=== PATIENT | female | born 1965 | race Caucasian/White ===

== ENCOUNTER 2019-09-07 15:52 | Inpatient (IN) ==
[2019-09-07 16:50] LABS: Bilirubin,Urine Negative (Negative); Blood,Urine Negative (Negative); Clarity,Urine Clear (Clear); Color,Urine Yellow (Yellow); Glucose,Urine (UA) Normal (Normal); Ketones,Urine Negative (Negative); Leukocyte Esterase,Urine Negative (Negative); Nitrite,Urine Negative (Negative); Protein,Urine Negative (Neg-Trace); Specific Gravity,Urine < 1.005 (1.010-1.025); Urobilinogen,Urine Normal (Normal)
[2019-09-07] MEDS ORDERED: *HR* OxyCODONE/APAP 5/325 TABLET PO ONE (16:52)
[2019-09-07] MEDS ORDERED: Ondansetron ODT 4 MG TAB.RAPDIS SL ONE (16:52)
[2019-09-07 17:01] LABS: Basophils % 0.2 %; Eosinophils % 0.6 %; Hematocrit 20.1 % (35.3-44.9); Hemoglobin 6.5 g/dL (11.5-15.4); Immature Granulocytes % 0.6 % (0-4); Lymphocytes # 0.9 K/mcL (0.6-4.6); Lymphocytes % 14.4 %; Mean Corpuscular HGB Conc 32.3 g/dL (31.6-35.5); Mean Corpuscular Hemoglobin 30.7 pg (28.0-33.3); Mean Corpuscular Volume 94.8 fL (83.0-100.0); Mean Platelet Volume 10.5 fL (9.4-12.4); Monocytes # 0.6 K/mcL (0.0-1.3); Monocytes % 9.7 %; Neutrophils # 4.6 K/mcL (1.6-8.9); Platelet Count 119 K/mcL (140-400); Red Blood Count 2.12 M/mcL (3.82-4.97); Red Cell Distribution Width 16.2 % (11.5-14.5); Segmented Neutrophils % 74.5 %; White Blood Count 6.2 K/mcL (4.3-11.1)
[2019-09-07 17:20] LABS: Alanine Aminotransferase 23 Units/L (7-52); Albumin 2.9 g/dL (3.5-5.7); Albumin/Globulin Ratio 0.8 (1.1-2.2); Alkaline Phosphatase 235 Units/L (34-104); Aspartate Amino Transferase 87 Units/L (13-39); BUN/Creatinine Ratio 5 (6-26); Bilirubin,Direct 0.5 mg/dL (0.0-0.2); Bilirubin,Indirect 0.6 mg/dL (0.0-1.2); Bilirubin,Total 1.1 mg/dL (0.3-1.0); Blood Urea Nitrogen 2 mg/dL (6-20); Calcium 7.9 mg/dL (8.6-10.3); Carbon Dioxide 22 mEq/L (23-29); Chloride 98 mEq/L (98-107); Globulin 3.5 g/dL (2.4-3.5); Glucose 150 mg/dL (70-105); Lipase 80 Units/L (11-82); Osmolality,Calculated 269 (280-300); Potassium 2.9 mEq/L (3.5-5.1); Sodium 130 mEq/L (136-145); Total Protein 6.4 g/dL (6.4-8.9); eGFR For African Americans > 60 (> 60); eGFR For Non-African Americans > 60 (> 60)
[2019-09-07] MEDS ORDERED: cefTRIAXone 1,000 MG in Water for inj. (sterile) 10 ML IVP ONE (17:29)
[2019-09-07 18:01] LABS: INR 1.5; Prothrombin Time 17.2 Seconds (9.4-12.1)
[2019-09-07 18:03] LABS: Activated Partial Thrombo Time 36.5 Seconds (26.0-36.0)
[2019-09-07] MEDS ORDERED: Pantoprazole 40 MG VIAL IVP ONE (18:07)
[2019-09-07] MEDS ORDERED: 0.9 % Sodium Chloride 250 ML ONE (19:13)
[2019-09-07 19:46] LABS: Magnesium 1.1 mg/dL (1.6-2.6)
[2019-09-07] MEDS ORDERED: Dextrose Gel 15 GM/37.5 ML TUBE PO PRN ×2 (22:02)
[2019-09-07] MEDS ORDERED: Albuterol 2.5 MG/3 ML NEBULIZER IH PRN (22:02)
[2019-09-07] MEDS ORDERED: *HR* Dextrose 50 % in Water (Syg) 50 ML SYRINGE IVP PRN (22:02)
[2019-09-07] MEDS ORDERED: Naloxone 0.4 MG/ML INJ IVP PRN (22:02)
[2019-09-07] MEDS ORDERED: D5% in Water 1,000 ML IVC PRN (22:02)
[2019-09-07] MEDS ORDERED: 0.9 % Sodium Chloride 250 ML IVC SCH (22:15)
[2019-09-07 23:04] LABS: Hematocrit 22.7 % (35.3-44.9); Hemoglobin 7.5 g/dL (11.5-15.4)
[2019-09-07 23:06] LABS: Estimated Average Glucose 111 mg/dl
[2019-09-07] MEDS: Nicotine 14 MG PATCH.TD24 TD SCH (23:06)
[2019-09-07] MEDS: Octreotide 400 MCG in 0.9 % Sodium Chloride 100 ML IVC SCH (23:16)
[2019-09-08] MEDS: Insulin LISPRO 300 UNITS/3 ML VIAL SQ SCH ×5 (00:06→23:51)
[2019-09-08 05:56] LABS: Basophils % 0.2 %; Eosinophils # 0.1 K/mcL (0.0-0.6); Hematocrit 22.7 % (35.3-44.9); Hemoglobin 7.4 g/dL (11.5-15.4); Immature Granulocytes % 0.3 % (0-4); Lymphocytes # 1.3 K/mcL (0.6-4.6); Lymphocytes % 22.3 %; Mean Corpuscular HGB Conc 32.6 g/dL (31.6-35.5); Mean Corpuscular Hemoglobin 30.8 pg (28.0-33.3); Mean Corpuscular Volume 94.6 fL (83.0-100.0); Mean Platelet Volume 10.5 fL (9.4-12.4); Monocytes # 0.5 K/mcL (0.0-1.3); Monocytes % 8.6 %; Neutrophils # 3.9 K/mcL (1.6-8.9); Platelet Count 111 K/mcL (140-400); Red Cell Distribution Width 16.1 % (11.5-14.5); Segmented Neutrophils % 66.6 %; White Blood Count 5.9 K/mcL (4.3-11.1)
[2019-09-08] MEDS: Pantoprazole 40 MG VIAL IVP SCH ×2 (06:06→17:02)
[2019-09-08 06:08] LABS: INR 1.5; Prothrombin Time 16.8 Seconds (9.4-12.1)
[2019-09-08 06:25] LABS: Alanine Aminotransferase 23 Units/L (7-52); Albumin 2.8 g/dL (3.5-5.7); Albumin/Globulin Ratio 0.8 (1.1-2.2); Alkaline Phosphatase 225 Units/L (34-104); Aspartate Amino Transferase 90 Units/L (13-39); BUN/Creatinine Ratio 5 (6-26); Bilirubin,Total 1.9 mg/dL (0.3-1.0); Blood Urea Nitrogen 2 mg/dL (6-20); Calcium 7.9 mg/dL (8.6-10.3); Carbon Dioxide 23 mEq/L (23-29); Chloride 100 mEq/L (98-107); Chol/HDL Ratio 10.4 (0-4.9); Cholesterol 146 mg/dL (< 200); Globulin 3.3 g/dL (2.4-3.5); Glucose 114 mg/dL (70-105); HDL Cholesterol 14 mg/dL (40-59); LDL Cholesterol,Calculated 114 mg/dL (0-99); Magnesium 1.9 mg/dL (1.6-2.6); Osmolality,Calculated 267 (280-300); Phosphorous 2.8 mg/dL (2.7-4.5); Potassium 3.7 mEq/L (3.5-5.1); Sodium 130 mEq/L (136-145); Total Protein 6.1 g/dL (6.4-8.9); Triglycerides 88 mg/dL (< 150); eGFR For African Americans > 60 (> 60); eGFR For Non-African Americans > 60 (> 60)
[2019-09-08] MEDS ORDERED: cefTRIAXone 1,000 MG in Water for inj. (sterile) 10 ML IVP SCH (09:00)
[2019-09-08] MEDS: cefTRIAXone 1,000 MG in 0.9 % Sodium Chloride Mini Bag 100 ML IVPB SCH (09:56)
[2019-09-08 10:44] LABS: Hematocrit 22.7 % (35.3-44.9); Hemoglobin 7.3 g/dL (11.5-15.4)
[2019-09-08] MEDS ORDERED: *HR* Propofol 200 MG/20 ML VIAL IVP ONE ×2 (12:09→12:25)
[2019-09-08] MEDS ORDERED: Lidocaine -MPF 2% 2 ML VIAL ONE (12:09)
[2019-09-08 14:36] LABS: Amylase,Peritoneal Fluid 19 Units/L (No Ref Range); Glucose,Peritoneal Fluid 119 mg/dL (No Ref Range); LDH,Peritoneal Fluid 42 Units/L (No Ref Range); Total Protein,Peritoneal Fluid < 3.0 g/dL
[2019-09-08 15:04] LABS: RBC,Peritoneal Fluid < 0.002 M/mcL
[2019-09-08] MEDS: Octreotide 400 MCG in 0.9 % Sodium Chloride 100 ML IVC SCH (15:06)
[2019-09-08] MEDS: *HR* Phytonadione 10 MG/ML AMPUL SQ SCH (15:06)
[2019-09-08] MEDS ORDERED: GI Cocktail 40 ML EACH PO ONE (15:17)
[2019-09-08 15:35] LABS: Appearance of Peritoneal Fl CLEAR (Clear); Basophils,Peritoneal Fluid 0 %; Eosinophils,Peritoneal Fluid 0 %
[2019-09-08] MEDS: Folic Acid 1 MG TABLET PO SCH (17:02)
[2019-09-08] MEDS: Thiamine (B-1) 100 MG TABLET PO SCH (17:02)
[2019-09-08] MEDS: Nicotine 14 MG PATCH.TD24 TD SCH (22:12)
[2019-09-09] MEDS: Pantoprazole 40 MG VIAL IVP SCH (05:01)
[2019-09-09] MEDS: Insulin LISPRO 300 UNITS/3 ML VIAL SQ SCH ×2 (06:16→11:27)
[2019-09-09 06:18] LABS: Basophils % 0.2 %; Eosinophils % 0.6 %; Hemoglobin 7.1 g/dL (11.5-15.4); Immature Granulocytes % 0.2 % (0-4); Lymphocytes # 0.9 K/mcL (0.6-4.6); Lymphocytes % 18.5 %; Mean Corpuscular HGB Conc 32.3 g/dL (31.6-35.5); Mean Corpuscular Hemoglobin 30.6 pg (28.0-33.3); Mean Corpuscular Volume 94.8 fL (83.0-100.0); Mean Platelet Volume 10.9 fL (9.4-12.4); Monocytes # 0.5 K/mcL (0.0-1.3); Monocytes % 9.6 %; Neutrophils # 3.3 K/mcL (1.6-8.9); Platelet Count 104 K/mcL (140-400); Red Blood Count 2.32 M/mcL (3.82-4.97); Red Cell Distribution Width 16.2 % (11.5-14.5); Segmented Neutrophils % 70.9 %; White Blood Count 4.7 K/mcL (4.3-11.1)
[2019-09-09] MEDS: Octreotide 400 MCG in 0.9 % Sodium Chloride 100 ML IVC SCH (07:01)
[2019-09-09 07:40] LABS: % Iron Saturation 5 % (15-50); BUN/Creatinine Ratio 8 (6-26); Blood Urea Nitrogen 4 mg/dL (6-20); Calcium 7.8 mg/dL (8.6-10.3); Carbon Dioxide 22 mEq/L (23-29); Chloride 101 mEq/L (98-107); Glucose 151 mg/dL (70-105); Iron 16 mcg/dL (50-170); Osmolality,Calculated 272 (280-300); Potassium 4.1 mEq/L (3.5-5.1); Sodium 131 mEq/L (136-145); Transferrin 211 mg/dL (203-362); eGFR For African Americans > 60 (> 60); eGFR For Non-African Americans > 60 (> 60)
[2019-09-09 07:46] LABS: Ferritin 31 ng/mL (10-120)
[2019-09-09 07:52] LABS: Folate 12.9 ng/mL (3.0-16.0)
[2019-09-09] MEDS: Thiamine (B-1) 100 MG TABLET PO SCH (08:02)
[2019-09-09] MEDS: *HR* Phytonadione 10 MG/ML AMPUL SQ SCH (08:02)
[2019-09-09] MEDS: Folic Acid 1 MG TABLET PO SCH (08:02)
[2019-09-09] MEDS: cefTRIAXone 1,000 MG in 0.9 % Sodium Chloride Mini Bag 100 ML IVPB SCH (08:04)
[2019-09-09] MEDS ORDERED: Furosemide 20 MG TABLET PO SCH (09:00)
[2019-09-09] MEDS ORDERED: Ferumoxytol 510 MG in 0.9 % Sodium Chloride 100 ML IVPB ONE ×3 (10:32→11:13)
[2019-09-09 13:29] VITALS: BP 105/67
[2019-09-10 16:06] LABS: Fluid Source for Albumin PERITONEAL FL
== END 2019-09-09 14:28 | disposition home or self-care (01) | DRG 432 ==
LOC: 2ANU 15:52 → EMEROOARM 15:52 → SUATTDRO 20:25 → 2ANU 20:59
PROVIDERS: ADMIT Family Medicine; ATTEND Internal Medicine

== ENCOUNTER 2020-07-25 04:56 | Inpatient (IN) ==
[2020-07-25] MEDS ORDERED: Naloxone 0.4 MG/ML INJ IVP PRN ×2 (06:42→06:46)
[2020-07-25] MEDS ORDERED: 0.9 % Sodium Chloride 1,000 ML ONE (06:56)
[2020-07-25] MEDS: 0.9 % Sodium Chloride 1,000 ML IVC SCH ×2 (06:59→14:35)
[2020-07-25] MEDS: Pantoprazole 40 MG in 0.9 % Sodium Chloride Mini Bag 100 ML IVC SCH ×2 (07:00→14:22)
[2020-07-25] MEDS: Octreotide 400 MCG in 0.9 % Sodium Chloride 100 ML IVC SCH ×2 (07:41→14:59)
[2020-07-25] MEDS ORDERED: Ondansetron 4 MG/2 ML VIAL IVP PRN (07:45)
[2020-07-25] MEDS ORDERED: Ondansetron 4 MG/2 ML VIAL ONE (07:48)
[2020-07-25 08:00] LABS: Mean Corpuscular HGB Conc 34.9 g/dL (31.6-35.5); Mean Corpuscular Hemoglobin 33.5 pg (28.0-33.3); Mean Corpuscular Volume 95.9 fL (83.0-100.0); White Blood Count 6.8 K/mcL (4.3-11.1)
[2020-07-25 08:02] LABS: Eosinophils % 0.1 %; Hematocrit 18.6 % (35.3-44.9); Hemoglobin 6.5 g/dL (11.5-15.4); Immature Granulocytes % 0.6 % (0-4); Lymphocytes # 1.3 K/mcL (0.6-4.6); Lymphocytes % 18.4 %; Monocytes # 0.6 K/mcL (0.0-1.3); Monocytes % 8.3 %; Red Blood Count 1.94 M/mcL (3.82-4.97); Red Cell Distribution Width 15.1 % (11.5-14.5); Segmented Neutrophils % 72.6 %
[2020-07-25 08:04] LABS: Prothrombin Time 22.3 Seconds (9.4-12.1)
[2020-07-25 08:04] LABS: VBG Ionized Calcium 0.76 mmol/L (1.15-1.35)
[2020-07-25 08:06] LABS: Activated Partial Thrombo Time 35.4 Seconds (26.0-36.0); Neutrophils # 4.9 K/mcL (1.6-8.9); Platelet Count 53 K/mcL (140-400)
[2020-07-25 08:20] LABS: Alanine Aminotransferase 25 Units/L (7-52); Albumin 1.7 g/dL (3.5-5.7); Albumin/Globulin Ratio 0.7 (1.1-2.2); Alkaline Phosphatase 123 Units/L (34-104); Amylase 50 Units/L (29-103); Aspartate Amino Transferase 79 Units/L (13-39); BUN/Creatinine Ratio 10 (6-26); Bilirubin,Direct 1.1 mg/dL (0.0-0.2); Bilirubin,Indirect 1.5 mg/dL (0.0-1.0); Bilirubin,Total 2.6 mg/dL (0.3-1.0); Blood Urea Nitrogen 4 mg/dL (6-20); Calcium 6.2 mg/dL (8.6-10.3); Carbon Dioxide 26 mEq/L (23-29); Chloride 95 mEq/L (98-107); Globulin 2.3 g/dL (2.4-3.5); Glucose 138 mg/dL (70-105); Lipase 156 Units/L (11-82); Magnesium 0.8 mg/dL (1.6-2.6); Osmolality,Calculated 265 (280-300); Phosphorous 2.8 mg/dL (2.7-4.5); Potassium 3.2 mEq/L (3.5-5.1); Sodium 128 mEq/L (136-145); eGFR For African Americans > 60 (> 60); eGFR For Non-African Americans > 60 (> 60)
[2020-07-25] MEDS ORDERED: Calcium Chloride 2,000 MG in 0.9 % Sodium Chloride 100 ML IVPB ONE (08:42)
[2020-07-25] MEDS: FentaNYL (PF) 1,000 MCG/100 ML IV.SOLN IVC SCH ×2 (08:45→15:01)
[2020-07-25] MEDS ORDERED: Norepinephrine 4 MG/254 ML IV.SOLN IVC SCH (08:45)
[2020-07-25] MEDS ORDERED: Vasopressin 40 UNIT in D5% in Water 100 ML IVC SCH (08:45)
[2020-07-25] MEDS: Midazolam HCl 50 MG/100 ML IV.SOLN IVC SCH ×2 (08:45→15:00)
[2020-07-25] MEDS ORDERED: *HR* Norepinephrine 4 MG/4 ML VIAL IVC ONE (08:54)
[2020-07-25] MEDS ORDERED: 0.9 % Sodium Chloride 250 ML ONE (08:55)
[2020-07-25] MEDS ORDERED: Sodium Tetradecyl Sulfate 2 ML VIAL IVP ONE (10:30)
[2020-07-25 11:09] LABS: Hemoglobin 7.3 g/dL (11.5-15.4)
[2020-07-25] MEDS ORDERED: Isovue-370 500 ML BOTTLE IVP ONE (11:09)
[2020-07-25 11:10] LABS: Hematocrit 21.2 % (35.3-44.9)
[2020-07-25 11:18] LABS: VBG Ionized Calcium 0.97 mmol/L (1.15-1.35)
[2020-07-25 11:35] LABS: BUN/Creatinine Ratio 11 (6-26); Blood Urea Nitrogen 5 mg/dL (6-20); Calcium 7.9 mg/dL (8.6-10.3); Carbon Dioxide 25 mEq/L (23-29); Chloride 98 mEq/L (98-107); Glucose 193 mg/dL (70-105); Magnesium 0.8 mg/dL (1.6-2.6); Osmolality,Calculated 275 (280-300); Phosphorous 4.9 mg/dL (2.7-4.5); Potassium 3.6 mEq/L (3.5-5.1); Sodium 131 mEq/L (136-145); Troponin I < 0.03 ng/mL (< 0.04); eGFR For African Americans > 60 (> 60); eGFR For Non-African Americans > 60 (> 60)
[2020-07-25 11:35] LABS: ABG Base Excess 4 mEq/L (-2 to 3); ABG HCO3 28 mEq/L (21-27); ABG Oxygen Saturation 100 % (95-98); ABG PCO2 40 mmHg (35-45); ABG PH 7.46 pH Units (7.32-7.45); ABG PO2 562 mmHg (85-104); ABG TCO2 29 mEq/L (20-26); Blood Gas Modality AF; Blood Gas VT 500 cc
[2020-07-25] MEDS ORDERED: Heparin 1,000 UNITS/500 mL 500 ML ONE (12:04)
[2020-07-25] MEDS ORDERED: Lidocaine/EPI 1:100k 1% 50 ML VIAL ONE (12:04)
[2020-07-25] MEDS ORDERED: 0.9 % Sodium Chloride 500 ML ONE (12:04)
[2020-07-25] MEDS ORDERED: Thiamine (B-1) 100 MG, Folic Acid 1 MG, MVI, adult with vitamin K 10 ML in 0.9 % Sodi... IVPB SCH (13:29)
[2020-07-25 15:11] VITALS: BP 109/68
[2020-07-25] MEDS ORDERED: cefTRIAXone 2,000 MG in Water for inj. (sterile) 20 ML IVP SCH (21:00)
== END 2020-07-25 15:23 | disposition short-term general hospital (02) | DRG 432 ==
LOC: ICNU → OBSVTOIN 06:22
PROVIDERS: ADMIT Internal Medicine; ATTEND Internal Medicine

== ENCOUNTER 2020-09-17 21:20 | Inpatient (IN) ==
[2020-09-17] MEDS ORDERED: Naloxone 0.4 MG/ML INJ IVP PRN (23:43)
[2020-09-18 00:24] LABS: BUN/Creatinine Ratio 11 (6-26); Blood Urea Nitrogen 8 mg/dL (6-20); Calcium 7.9 mg/dL (8.6-10.3); Carbon Dioxide 31 mEq/L (23-29); Chloride 87 mEq/L (98-107); Glucose 98 mg/dL (70-105); Osmolality,Calculated 260 (280-300); Sodium 126 mEq/L (136-145); eGFR For African Americans > 60 (> 60); eGFR For Non-African Americans > 60 (> 60)
[2020-09-18 00:50] LABS: Basophils % 0.3 %; Eosinophils # 0.1 K/mcL (0.0-0.6); Eosinophils % 0.6 %; Hematocrit 27.5 % (35.3-44.9); Hemoglobin 9.2 g/dL (11.5-15.4); Immature Granulocytes % 0.6 % (0-4); Immature Platelets 5.9 % (1.1-6.1); Lymphocytes # 1.4 K/mcL (0.6-4.6); Lymphocytes % 16.2 %; Mean Corpuscular HGB Conc 33.5 g/dL (31.6-35.5); Mean Corpuscular Hemoglobin 30.3 pg (28.0-33.3); Mean Corpuscular Volume 90.5 fL (83.0-100.0); Mean Platelet Volume 10.6 fL (9.4-12.4); Monocytes # 0.8 K/mcL (0.0-1.3); Monocytes % 8.5 %; Neutrophils # 6.5 K/mcL (1.6-8.9); Platelet Count 104 K/mcL (140-400); Red Blood Count 3.04 M/mcL (3.82-4.97); Red Cell Distribution Width 16.5 % (11.5-14.5); Segmented Neutrophils % 73.8 %; White Blood Count 8.9 K/mcL (4.3-11.1)
[2020-09-18 00:55] LABS: INR 2.2; Prothrombin Time 25.3 Seconds (9.4-12.1)
[2020-09-18] MEDS ORDERED: 0.9 % Sodium Chloride 1,000 ML IVC SCH (01:00)
[2020-09-18 01:08] LABS: Alanine Aminotransferase 12 Units/L (7-52); Albumin/Globulin Ratio 0.4 (1.1-2.2); Alkaline Phosphatase 144 Units/L (34-104); Aspartate Amino Transferase 48 Units/L (13-39); BUN/Creatinine Ratio 10 (6-26); Bilirubin,Total 4.5 mg/dL (0.3-1.0); Blood Urea Nitrogen 8 mg/dL (6-20); Calcium 8.1 mg/dL (8.6-10.3); Carbon Dioxide 32 mEq/L (23-29); Chloride 86 mEq/L (98-107); Globulin 5.2 g/dL (2.4-3.5); Glucose 97 mg/dL (70-105); Osmolality,Calculated 262 (280-300); Sodium 127 mEq/L (136-145); Total Protein 7.2 g/dL (6.4-8.9); eGFR For African Americans > 60 (> 60); eGFR For Non-African Americans > 60 (> 60)
[2020-09-18 01:09] LABS: Troponin I < 0.03 ng/mL (< 0.04)
[2020-09-18] MEDS ORDERED: Lactulose 200 GM, Sodium Chloride IRRigation 700 ML RC ONE (01:24)
[2020-09-18] MEDS ORDERED: 0.9 % Sodium Chloride 250 ML ONE ×2 (03:33→15:28)
[2020-09-18] MEDS ORDERED: Potassium Chloride 40 MEQ, Lidocaine 1% 2 ML in 0.9 % Sodium Chloride 500 ML IVPB ONE (06:45)
[2020-09-18 07:05] LABS: BUN/Creatinine Ratio 11 (6-26); Blood Urea Nitrogen 8 mg/dL (6-20); Calcium 7.9 mg/dL (8.6-10.3); Carbon Dioxide 32 mEq/L (23-29); Chloride 88 mEq/L (98-107); Glucose 87 mg/dL (70-105); Osmolality,Calculated 264 (280-300); Potassium 2.9 mEq/L (3.5-5.1); Sodium 128 mEq/L (136-145); eGFR For African Americans > 60 (> 60); eGFR For Non-African Americans > 60 (> 60)
[2020-09-18] MEDS: Furosemide 40 MG TABLET PO SCH ×2 (08:57→18:40)
[2020-09-18] MEDS: Albumin 25% 25gram/100mL 25 GM/100 ML IV.SOLN IVC SCH ×2 (13:09→15:11)
[2020-09-18] MEDS: Lactulose Oral Soln 20 GM/30 ML UDC PO SCH ×2 (13:10→20:36)
[2020-09-18] MEDS ORDERED: 0.9 % Sodium Chloride 250 ML IVC ONE ×2 (15:25→18:48)
[2020-09-18] MEDS ORDERED: 0.9 % Sodium Chloride 500 ML IVC ONE (18:40)
[2020-09-18] MEDS ORDERED: 0.9 % Sodium Chloride 500 ML ONE (18:44)
[2020-09-18] MEDS ORDERED: Albumin 25% 25gram/100mL 25 GM/100 ML IV.SOLN IVPB ONE (21:03)
[2020-09-19] MEDS ORDERED: Albumin 25% 25gram/100mL 25 GM/100 ML IV.SOLN IVPB ONE (03:35)
[2020-09-19 04:09] LABS: Hemoglobin 8.7 g/dL (11.5-15.4); Lymphocytes % 25.2 %; Mean Corpuscular Volume 91.3 fL (83.0-100.0)
[2020-09-19 04:11] LABS: Basophils % 0.5 %; Eosinophils # 0.1 K/mcL (0.0-0.6); Eosinophils % 1.7 %; Hematocrit 26.4 % (35.3-44.9); Immature Granulocytes % 0.5 % (0-4); Immature Platelets 5.8 % (1.1-6.1); Lymphocytes # 1.5 K/mcL (0.6-4.6); Mean Corpuscular Hemoglobin 30.1 pg (28.0-33.3); Mean Platelet Volume 10.6 fL (9.4-12.4); Monocytes # 0.9 K/mcL (0.0-1.3); Monocytes % 14.8 %; Neutrophils # 3.4 K/mcL (1.6-8.9); Nucleated Red Blood Cells 0.3 /100 WBC (0); Red Blood Count 2.89 M/mcL (3.82-4.97); Red Cell Distribution Width 16.3 % (11.5-14.5); Segmented Neutrophils % 57.3 %
[2020-09-19 04:12] LABS: Platelet Count 78 K/mcL (140-400)
[2020-09-19 04:35] LABS: BUN/Creatinine Ratio 13 (6-26); Blood Urea Nitrogen 8 mg/dL (6-20); Calcium 8.2 mg/dL (8.6-10.3); Carbon Dioxide 30 mEq/L (23-29); Chloride 94 mEq/L (98-107); Glucose 87 mg/dL (70-105); Osmolality,Calculated 268 (280-300); Potassium 2.9 mEq/L (3.5-5.1); Sodium 130 mEq/L (136-145); eGFR For African Americans > 60 (> 60); eGFR For Non-African Americans > 60 (> 60)
[2020-09-19 08:01] LABS: Magnesium 1.5 mg/dL (1.6-2.6); Phosphorous 1.7 mg/dL (2.7-4.5)
[2020-09-19] MEDS: Furosemide 40 MG TABLET PO SCH ×2 (08:11→16:44)
[2020-09-19] MEDS: Folic Acid 1 MG TABLET PO SCH (08:20)
[2020-09-19] MEDS: Thiamine (B-1) 100 MG TABLET PO SCH (08:20)
[2020-09-19] MEDS: PARoxetine 20 MG TABLET PO SCH (08:21)
[2020-09-19] MEDS: Lactulose Oral Soln 20 GM/30 ML UDC PO SCH ×2 (08:21→22:46)
[2020-09-19] MEDS: Fluticasone Propionate Nasal 50 MCG/SPRAY BOTTLE NS SCH (08:23)
[2020-09-19 10:50] LABS: RBC,Peritoneal Fluid < 2000 RBC/mcL
[2020-09-19 10:52] LABS: Appearance of Peritoneal Fl HAZY (Clear)
[2020-09-19] MEDS ORDERED: Potassium Phosphate 44 MEQ in 0.9 % Sodium Chloride 250 ML IVPB ONE (11:10)
[2020-09-19 12:28] LABS: Basophils,Peritoneal Fluid 0 %; Eosinophils,Peritoneal Fluid 0 %
[2020-09-19] MEDS: *HR* Phytonadione 5 MG TABLET PO SCH (13:23)
[2020-09-19] MEDS: Albumin 25% 25gram/100mL 25 GM/100 ML IV.SOLN IVPB SCH ×3 (13:24→23:17)
[2020-09-19] MEDS: cefTRIAXone 1,000 MG in Water for inj. (sterile) 10 ML IVP SCH (13:43)
[2020-09-20 06:28] LABS: Basophils % 0.4 %; Immature Granulocytes % 0.2 % (0-4); Mean Platelet Volume 10.7 fL (9.4-12.4); Red Cell Distribution Width 16.3 % (11.5-14.5)
[2020-09-20 06:30] LABS: Eosinophils # 0.1 K/mcL (0.0-0.6); Eosinophils % 1.7 %; Hematocrit 23.2 % (35.3-44.9); Hemoglobin 7.8 g/dL (11.5-15.4); Immature Platelets 6.1 % (1.1-6.1); Lymphocytes # 1.5 K/mcL (0.6-4.6); Lymphocytes % 27.3 %; Mean Corpuscular HGB Conc 33.6 g/dL (31.6-35.5); Mean Corpuscular Volume 92.1 fL (83.0-100.0); Monocytes # 0.8 K/mcL (0.0-1.3); Monocytes % 15.3 %; Neutrophils # 2.9 K/mcL (1.6-8.9); Red Blood Count 2.52 M/mcL (3.82-4.97); Segmented Neutrophils % 55.1 %; White Blood Count 5.3 K/mcL (4.3-11.1)
[2020-09-20 06:33] LABS: Platelet Count 67 K/mcL (140-400)
[2020-09-20 07:03] LABS: Hypochromasia Present (Not Present); Platelet Estimate Decreased (Normal); Reactive Lymphocytes Present (Not Present)
[2020-09-20 07:09] LABS: BUN/Creatinine Ratio 15 (6-26); Blood Urea Nitrogen 8 mg/dL (6-20); Calcium 8.2 mg/dL (8.6-10.3); Carbon Dioxide 28 mEq/L (23-29); Chloride 97 mEq/L (98-107); Glucose 79 mg/dL (70-105); Magnesium 1.6 mg/dL (1.6-2.6); Osmolality,Calculated 273 (280-300); Phosphorous 2.1 mg/dL (2.7-4.5); Potassium 3.4 mEq/L (3.5-5.1); Sodium 133 mEq/L (136-145); eGFR For African Americans > 60 (> 60); eGFR For Non-African Americans > 60 (> 60)
[2020-09-20] MEDS: Folic Acid 1 MG TABLET PO SCH (08:49)
[2020-09-20] MEDS: *HR* Phytonadione 5 MG TABLET PO SCH (08:49)
[2020-09-20] MEDS: cefTRIAXone 1,000 MG in Water for inj. (sterile) 10 ML IVP SCH (08:49)
[2020-09-20] MEDS: Thiamine (B-1) 100 MG TABLET PO SCH (08:49)
[2020-09-20] MEDS: Albumin 25% 25gram/100mL 25 GM/100 ML IV.SOLN IVPB SCH ×4 (08:51→18:44)
[2020-09-20] MEDS: Fluticasone Propionate Nasal 50 MCG/SPRAY BOTTLE NS SCH (08:52)
[2020-09-20] MEDS: Lactulose Oral Soln 20 GM/30 ML UDC PO SCH ×4 (08:52→20:51)
[2020-09-20] MEDS: PARoxetine 20 MG TABLET PO SCH (08:53)
[2020-09-20 10:44] LABS: INR 2.4; Prothrombin Time 27.1 Seconds (9.4-12.1)
[2020-09-20] MEDS: Furosemide 40 MG TABLET PO SCH (11:13)
[2020-09-20 12:24] LABS: Hematocrit 24.4 % (35.3-44.9); Hemoglobin 7.9 g/dL (11.5-15.4)
[2020-09-20 12:44] LABS: Albumin 3.3 g/dL (3.5-5.7); Albumin/Globulin Ratio 1.2 (1.1-2.2); Bilirubin,Direct 1.4 mg/dL (0.0-0.2); Bilirubin,Indirect 1.3 mg/dL (0.0-1.0); Bilirubin,Total 2.7 mg/dL (0.3-1.0); Globulin 2.8 g/dL (2.4-3.5); Total Protein 6.1 g/dL (6.4-8.9)
[2020-09-20] MEDS ORDERED: cefTRIAXone 1,000 MG in 0.9 % Sodium Chloride Mini Bag 100 ML IVPB ONE (14:43)
[2020-09-20] MEDS ORDERED: *HR* Dextrose 50 % in Water (Vial) 50 ML VIAL IVP PRN (15:26)
[2020-09-20] MEDS ORDERED: Dextrose Gel 15 GM/37.5 ML TUBE PO PRN ×2 (15:26)
[2020-09-20] MEDS ORDERED: D5% in Water 1,000 ML IVC PRN (15:26)
[2020-09-20] MEDS: MethylPREDNISolone 40 MG/ML VIAL IVP SCH (16:16)
[2020-09-21 04:28] LABS: INR 2.7; Mean Corpuscular Volume 93.2 fL (83.0-100.0)
[2020-09-21 04:30] LABS: Activated Partial Thrombo Time 50.1 Seconds (26.0-36.0); Hematocrit 24.5 % (35.3-44.9); Hemoglobin 7.9 g/dL (11.5-15.4); Immature Granulocytes % 0.8 % (0-4); Immature Platelets 5.1 % (1.1-6.1); Lymphocytes # 0.7 K/mcL (0.6-4.6); Lymphocytes % 17.3 %; Mean Corpuscular HGB Conc 32.2 g/dL (31.6-35.5); Mean Platelet Volume 10.3 fL (9.4-12.4); Monocytes # 0.4 K/mcL (0.0-1.3); Monocytes % 9.1 %; Nucleated Red Blood Cells 0.8 /100 WBC (0); Red Blood Count 2.63 M/mcL (3.82-4.97); Red Cell Distribution Width 16.4 % (11.5-14.5); Segmented Neutrophils % 72.8 %; White Blood Count 3.9 K/mcL (4.3-11.1)
[2020-09-21 04:36] LABS: Neutrophils # 2.8 K/mcL (1.6-8.9); Platelet Count 66 K/mcL (140-400)
[2020-09-21 04:42] LABS: Magnesium 1.7 mg/dL (1.6-2.6); Phosphorous 2.4 mg/dL (2.7-4.5)
[2020-09-21 05:03] LABS: Alanine Aminotransferase 8 Units/L (7-52); Albumin 3.8 g/dL (3.5-5.7); Albumin/Globulin Ratio 1.5 (1.1-2.2); Alkaline Phosphatase 91 Units/L (34-104); Aspartate Amino Transferase 36 Units/L (13-39); BUN/Creatinine Ratio 14 (6-26); Bilirubin,Total 2.5 mg/dL (0.3-1.0); Blood Urea Nitrogen 7 mg/dL (6-20); Carbon Dioxide 25 mEq/L (23-29); Chloride 99 mEq/L (98-107); Ferritin 123 ng/mL (10-120); Globulin 2.5 g/dL (2.4-3.5); Glucose 152 mg/dL (70-105); Iron 22 mcg/dL (50-170); Osmolality,Calculated 275 (280-300); Potassium 4.1 mEq/L (3.5-5.1); Sodium 132 mEq/L (136-145); Total Protein 6.3 g/dL (6.4-8.9); Transferrin < 75 mg/dL (203-362); eGFR For African Americans > 60 (> 60); eGFR For Non-African Americans > 60 (> 60)
[2020-09-21 05:12] LABS: Anisocytosis 1+ (Not Present); Microcytosis Present (Not Present); Platelet Estimate Decreased (Normal); Reactive Lymphocytes Present (Not Present)
[2020-09-21] MEDS ORDERED: Iron Sucrose Complex 400 MG in 0.9 % Sodium Chloride 250 ML IVPB ONE (07:34)
[2020-09-21] MEDS: Albumin 25% 25gram/100mL 25 GM/100 ML IV.SOLN IVPB SCH ×4 (08:04→19:21)
[2020-09-21] MEDS: Lactulose Oral Soln 20 GM/30 ML UDC PO SCH ×3 (08:05→20:27)
[2020-09-21] MEDS: cefTRIAXone 2,000 MG in Water for inj. (sterile) 20 ML IVP SCH (08:05)
[2020-09-21] MEDS: MethylPREDNISolone 40 MG/ML VIAL IVP SCH (08:06)
[2020-09-21] MEDS: Thiamine (B-1) 100 MG TABLET PO SCH (08:08)
[2020-09-21] MEDS: PARoxetine 20 MG TABLET PO SCH (08:08)
[2020-09-21] MEDS: Folic Acid 1 MG TABLET PO SCH (08:09)
[2020-09-21] MEDS: Spironolactone 25 MG TABLET PO SCH (08:09)
[2020-09-21] MEDS: *HR* Phytonadione 5 MG TABLET PO SCH (08:10)
[2020-09-21] MEDS: Furosemide 20 MG TABLET PO SCH (08:10)
[2020-09-21] MEDS: Multivitamin Liquid 15 ML UDC PO SCH (08:10)
[2020-09-21] MEDS: Fluticasone Propionate Nasal 50 MCG/SPRAY BOTTLE NS SCH (08:10)
[2020-09-21] MEDS ORDERED: Furosemide 40 MG TABLET PO SCH (09:00)
[2020-09-21] MEDS ORDERED: Ondansetron 4 MG/2 ML VIAL IVP PRN (20:39)
[2020-09-22 01:18] LABS: Red Cell Distribution Width 16.9 % (11.5-14.5)
[2020-09-22 01:20] LABS: Hematocrit 24.6 % (35.3-44.9); Mean Corpuscular HGB Conc 32.5 g/dL (31.6-35.5); Mean Corpuscular Hemoglobin 30.8 pg (28.0-33.3); Mean Corpuscular Volume 94.6 fL (83.0-100.0); Mean Platelet Volume 10.5 fL (9.4-12.4); Red Blood Count 2.6 M/mcL (3.82-4.97); White Blood Count 13.6 K/mcL (4.3-11.1)
[2020-09-22 01:21] LABS: BUN/Creatinine Ratio 17 (6-26); Blood Urea Nitrogen 8 mg/dL (6-20); Calcium 10.2 mg/dL (8.6-10.3); Carbon Dioxide 24 mEq/L (23-29); Chloride 99 mEq/L (98-107); Glucose 169 mg/dL (70-105); Osmolality,Calculated 278 (280-300); Potassium 3.7 mEq/L (3.5-5.1); Sodium 133 mEq/L (136-145); eGFR For African Americans > 60 (> 60); eGFR For Non-African Americans > 60 (> 60)
[2020-09-22 01:22] LABS: Magnesium 1.7 mg/dL (1.6-2.6); Phosphorous 2.6 mg/dL (2.7-4.5)
[2020-09-22 07:28] VITALS: BP 141/70
[2020-09-22] MEDS: Albumin 25% 25gram/100mL 25 GM/100 ML IV.SOLN IVPB SCH (07:40)
[2020-09-22] MEDS: cefTRIAXone 2,000 MG in Water for inj. (sterile) 20 ML IVP SCH (08:03)
[2020-09-22] MEDS: MethylPREDNISolone 40 MG/ML VIAL IVP SCH (08:04)
[2020-09-22] MEDS: Lactulose Oral Soln 20 GM/30 ML UDC PO SCH (08:04)
[2020-09-22] MEDS: PARoxetine 20 MG TABLET PO SCH (08:05)
[2020-09-22] MEDS: Furosemide 20 MG TABLET PO SCH (08:05)
[2020-09-22] MEDS: Spironolactone 25 MG TABLET PO SCH (08:05)
[2020-09-22] MEDS: Folic Acid 1 MG TABLET PO SCH (08:05)
[2020-09-22] MEDS: Multivitamin Liquid 15 ML UDC PO SCH (08:05)
[2020-09-22] MEDS: Thiamine (B-1) 100 MG TABLET PO SCH (08:05)
[2020-09-22] MEDS: Fluticasone Propionate Nasal 50 MCG/SPRAY BOTTLE NS SCH (08:06)
[2020-09-22 09:34] LABS: INR 2.7; Prothrombin Time 30.3 Seconds (9.4-12.1)
[2020-09-22] MEDS ORDERED: Lactulose Oral Soln 20 GM/30 ML UDC PO SCH (13:00)
== END 2020-09-22 14:52 | disposition short-term general hospital (02) | DRG 432 ==
LOC: 3ANU → SUATTDRO 23:14
PROVIDERS: ADMIT Student in an Organized Health Care Education/Training Program; ATTEND Internal Medicine